=== PATIENT | female | born 1995 | race Caucasian/White ===

== ENCOUNTER 2018-01-18 20:55 | Inpatient (IN) | payer BC, OTHER ==
[~2018-01-18] VITALS: Ht 142.2 cm; Wt 74.5 kg
[2018-01-18 21:19] VITALS: BP 125/78
[2018-01-18 21:31] LABS: CREATININE,URINE RANDOM 82.7 mg/dL
[2018-01-18 21:36] LABS: MICROSCOPIC INDICATED
[2018-01-18 21:36] LABS: BASOPHILS # (AUTO) 0.02 x10^3/uL (0-0.1); BASOPHILS % (AUTO) 0 % (0-1); EOSINOPHILS # (AUTO) 0.06 x10^3/uL (0-0.4); EOSINOPHILS % (AUTO) 1 % (1-7); LYMPHOCYTES # (AUTO) 2.22 x10^3/uL (1-3.4); LYMPHOCYTES % (AUTO) 19 % (22-44); MD NO; MEAN CORPUSCULAR HEMOGLOBIN 26.6 pg (27.0-34.8); MEAN CORPUSCULAR HGB CONC 32.8 g/dL (32.4-35.8); MEAN CORPUSCULAR VOLUME 81.1 fL (80-100); MEAN PLATELET VOLUME 9.7 fL (7.4-10.4); MONOCYTES # (AUTO) 0.66 x10^3/uL (0.2-0.8); MONOCYTES % (AUTO) 6 % (2-9); NEUTROPHILS % (AUTO) 75 % (42-75); PLATELET COUNT 315 x10^3/uL (130-400); RED BLOOD COUNT 4.61 x10^6/uL (3.82-5.3); RED CELL DISTRIBUTION WIDTH 14.9 % (9.6-15.2)
[2018-01-18 21:46] LABS: ALANINE AMINOTRANSFERASE 60 U/L (12-78); ALBUMIN 2.1 g/dL (3.4-5.0); ANION GAP 7 mmol/L (5-15); BILIRUBIN, DIRECT 0.4 mg/dL (0.1-0.2); CALCIUM 8.3 mg/dL (8.5-10.1); CHLORIDE 109 mmol/L (98-107); CREATININE 0.49 mg/dL (0.55-1.02)
[2018-01-18 21:48] LABS: ALKALINE PHOSPHATASE 275 U/L (45-117); BILIRUBIN,TOTAL 0.6 mg/dL (0.2-1.0); TOTAL PROTEIN 6.6 g/dL (6.4-8.2)
[2018-01-18] MEDS ORDERED: MAALOX/HYOSCYAMINE/LIDOCAINE 45 ML BTL PO ONE (22:00)
[2018-01-19 04:53] LABS: BASOPHILS # (AUTO) 0.03 x10^3/uL (0-0.1); BASOPHILS % (AUTO) 0 % (0-1); EOSINOPHILS % (AUTO) 1 % (1-7); LYMPHOCYTES # (AUTO) 2.39 x10^3/uL (1-3.4); LYMPHOCYTES % (AUTO) 24 % (22-44); MD NO; MEAN CORPUSCULAR HEMOGLOBIN 26.5 pg (27.0-34.8); MEAN CORPUSCULAR HGB CONC 32.8 g/dL (32.4-35.8); MEAN CORPUSCULAR VOLUME 80.8 fL (80-100); MEAN PLATELET VOLUME 9.9 fL (7.4-10.4); MONOCYTES # (AUTO) 0.51 x10^3/uL (0.2-0.8); MONOCYTES % (AUTO) 5 % (2-9); NEUTROPHILS % (AUTO) 69 % (42-75); PLATELET COUNT 329 x10^3/uL (130-400); RED BLOOD COUNT 4.55 x10^6/uL (3.82-5.3); RED CELL DISTRIBUTION WIDTH 15.7 % (9.6-15.2)
[2018-01-19 05:06] LABS: ALBUMIN 2.2 g/dL (3.4-5.0); ANION GAP 7 mmol/L (5-15); CALCIUM 8.2 mg/dL (8.5-10.1); CHLORIDE 107 mmol/L (98-107)
[2018-01-19 05:10] LABS: ALANINE AMINOTRANSFERASE 85 U/L (12-78); ALKALINE PHOSPHATASE 316 U/L (45-117); BILIRUBIN,TOTAL 0.7 mg/dL (0.2-1.0); CREATININE 0.46 mg/dL (0.55-1.02); TOTAL PROTEIN 6.6 g/dL (6.4-8.2)
[2018-01-19 17:19] LABS: BASOPHILS # (AUTO) 0.03 x10^3/uL (0-0.1); BASOPHILS % (AUTO) 0 % (0-1); EOSINOPHILS # (AUTO) 0.07 x10^3/uL (0-0.4); EOSINOPHILS % (AUTO) 1 % (1-7); LYMPHOCYTES # (AUTO) 1.92 x10^3/uL (1-3.4); LYMPHOCYTES % (AUTO) 20 % (22-44); MD NO; MEAN CORPUSCULAR HEMOGLOBIN 26.6 pg (27.0-34.8); MEAN CORPUSCULAR HGB CONC 32.7 g/dL (32.4-35.8); MEAN CORPUSCULAR VOLUME 81.3 fL (80-100); MEAN PLATELET VOLUME 9.9 fL (7.4-10.4); MONOCYTES # (AUTO) 0.64 x10^3/uL (0.2-0.8); MONOCYTES % (AUTO) 7 % (2-9); NEUTROPHILS # (AUTO) 7.15 x10^3/uL (1.8-6.8); NEUTROPHILS % (AUTO) 73 % (42-75); PLATELET COUNT 329 x10^3/uL (130-400); RED BLOOD COUNT 4.64 x10^6/uL (3.82-5.3); RED CELL DISTRIBUTION WIDTH 15.4 % (9.6-15.2)
[2018-01-19 17:24] LABS: ALANINE AMINOTRANSFERASE 88 U/L (12-78); ALBUMIN 2.3 g/dL (3.4-5.0); ANION GAP 8 mmol/L (5-15); CALCIUM 8.9 mg/dL (8.5-10.1); CHLORIDE 109 mmol/L (98-107); CREATININE 0.62 mg/dL (0.55-1.02)
[2018-01-19 17:25] LABS: BILIRUBIN, DIRECT < 0.1 mg/dL (0.1-0.2)
[2018-01-19 17:27] LABS: ALKALINE PHOSPHATASE 353 U/L (45-117); BILIRUBIN,TOTAL 0.3 mg/dL (0.2-1.0); TOTAL PROTEIN 7.1 g/dL (6.4-8.2)
== END 2018-01-20 01:00 | disposition home or self-care (01) | DRG 782 ==
LOC: LDOP 20:55 → LDIP 22:07 → OBSVTOIN 01-19 13:42
PROVIDERS: ADMIT Obstetrics & Gynecology; ATTEND Obstetrics & Gynecology
DX: O13.3 Gestational [pregnancy-induced] hypertension without significant proteinuria, third trimester (principal); Z3A.35 35 weeks gestation of pregnancy
CPT/HCPCS: 36415; 80053; 81001; 81050; 82248; 82570; 84156; 84550; 85025; 86850; 86900; 87086; 96360; G0378

== ENCOUNTER 2018-10-30 18:08 | Emergency (ER) | payer BC ==
[~2018-10-30] VITALS: Ht 142.2 cm; Wt 76.5 kg
--- NOTE | 2018-10-30 18:59 | NUR ---
report given to Desiree
[2018-10-30 19:04] LABS: BASOPHILS # (AUTO) 0.04 x10^3/uL (0-0.1); BASOPHILS % (AUTO) 0 % (0-1); EOSINOPHILS # (AUTO) 0.12 x10^3/uL (0-0.4); EOSINOPHILS % (AUTO) 1 % (1-7); LYMPHOCYTES # (AUTO) 3.16 x10^3/uL (1-3.4); LYMPHOCYTES % (AUTO) 26 % (22-44); MD NO; MEAN CORPUSCULAR HEMOGLOBIN 26.8 pg (27.0-34.8); MEAN CORPUSCULAR HGB CONC 33.3 g/dL (32.4-35.8); MEAN CORPUSCULAR VOLUME 80.3 fL (80-100); MEAN PLATELET VOLUME 8.8 fL (7.4-10.4); MONOCYTES # (AUTO) 0.68 x10^3/uL (0.2-0.8); MONOCYTES % (AUTO) 6 % (2-9); NEUTROPHILS # (AUTO) 8.41 x10^3/uL (1.8-6.8); NEUTROPHILS % (AUTO) 68 % (42-75); PLATELET COUNT 308 x10^3/uL (130-400); RED BLOOD COUNT 5.04 x10^6/uL (3.82-5.3); RED CELL DISTRIBUTION WIDTH 14.7 % (9.6-15.2)
[2018-10-30 19:11] LABS: ALBUMIN 3.6 g/dL (3.4-5.0); ANION GAP 8 mmol/L (5-15); CALCIUM 8.8 mg/dL (8.5-10.1); CHLORIDE 104 mmol/L (98-107)
[2018-10-30 19:18] LABS: ALANINE AMINOTRANSFERASE 25 U/L (12-78); ALKALINE PHOSPHATASE 155 U/L (45-117); BILIRUBIN,TOTAL 0.2 mg/dL (0.2-1.0); CREATININE 0.52 mg/dL (0.55-1.02)
--- NOTE | 2018-10-30 19:53 | NUR ---
pt resting on gurney, monitors in place, call light within reach, urine sample sent. awaiting results
[2018-10-30 20:07] LABS: MICROSCOPIC INDICATED
[2018-10-30 20:18] LABS: CULTURE INDICATED? NO
--- NOTE | 2018-10-30 20:32 | NUR ---
provided pt with po fluids. pt up to rr with steady gait.
[2018-10-30 20:52] VITALS: BP 153/94
--- NOTE | 2018-10-30 20:52 | NUR ---
pt tolerating po fluid without difficulty, denies n/v. pt resting on gurney, monitors in place, call light within reach. chart up for recheck
== END 2018-10-30 21:55 | disposition home or self-care (01) ==
LOC: ED 21:33
DX: K80.70 Calculus of gallbladder and bile duct without cholecystitis without obstruction (principal); Z98.890 Other specified postprocedural states
CPT/HCPCS: 36415; 76700; 80053; 81001; 83690; 84703; 85025; 99284

== ENCOUNTER 2018-11-12 06:18 | Day surgery (SDC) | payer BC ==
[~2018-11-12] VITALS: Ht 142.2 cm; Wt 76.4 kg
[~2018-11-12 06:18] MED LIST: BUPIVACAINE/PF-EPI 0.5% 1:200K ONE
[2018-11-12] MEDS ORDERED: LACTATED RINGERS 1,000 ML IV SCH ×2 (06:36→07:00)
[2018-11-12] MEDS ORDERED: FENTANYL PF 250 MCG/5ML ONE (06:42)
[2018-11-12] MEDS ORDERED: MIDAZOLAM 1 MG/ML, 2ML ONE (06:42)
[2018-11-12 06:43] VITALS: BP 118/87
[2018-11-12] MEDS ORDERED: ROCURONIUM 10MG/ML,5ML ONE (06:45)
[2018-11-12] MEDS ORDERED: DEXAMETHASONE 4 MG/ML, 1ML ONE (06:45)
[2018-11-12] MEDS ORDERED: none per pt (06:48)
[2018-11-12] MEDS ORDERED: LIDOCAINE-MPF 2% ,5ML ONE (06:48)
[2018-11-12 06:49] LABS: HCG UR SG 1.029 (1.003-1.030)
[2018-11-12] MEDS ORDERED: SUCCINYLCHOLINE 20 MG/ML, 10ML ONE (06:49)
[2018-11-12] MEDS ORDERED: PROMETHAZINE 25 MG/ML, 1ML IV PRN (07:00)
[2018-11-12] MEDS ORDERED: HALOPERIDOL 5 MG/ML IV PRN (07:00)
[2018-11-12] MEDS ORDERED: hydrALAzine 20 MG/ML, 1ML IV PRN (07:00)
[2018-11-12] MEDS ORDERED: DIAZEPAM 5 MG/ML, 2ML IVPush PRN (07:00)
[2018-11-12] MEDS ORDERED: MORPHINE SULFATE 4 MG/ML, 1ML IVPush PRN (07:00)
[2018-11-12] MEDS ORDERED: EPHEDRINE 50 MG/ML, 1ML IVPush PRN (07:00)
[2018-11-12] MEDS ORDERED: PROMETHAZINE 12.5 MG SUPP PR PRN (07:00)
[2018-11-12] MEDS ORDERED: OXYcodone 5 MG/5 ML ORAL.SOL UDC PO PRN (07:00)
[2018-11-12] MEDS ORDERED: HYDROmorphone 2 MG/ML, 1ML IVPush PRN (07:00)
[2018-11-12] MEDS ORDERED: ONDANSETRON ODT 8 MG PO PRN (07:00)
[2018-11-12] MEDS ORDERED: FENTANYL PF 100 MCG/2ML IV PRN (07:00)
[2018-11-12] MEDS ORDERED: LABETALOL 5MG/ML, 20ML IV PRN (07:00)
[2018-11-12] MEDS ORDERED: ONDANSETRON 2MG/ML, 2ML IV PRN (07:00)
[2018-11-12] MEDS ORDERED: MIDAZOLAM 1 MG/ML, 2ML IV PRN (07:00)
[2018-11-12] MEDS ORDERED: ALBUTEROL SULFATE 2.5 MG/3 ML NPPB PRN (07:00)
[2018-11-12] MEDS ORDERED: CEFAZOLIN 1,000 MG ONE (07:05)
[2018-11-12] MEDS ORDERED: PROPOFOL 10 MG/ML, 20ML ONE (07:05)
[2018-11-12] MEDS ORDERED: KETOROLAC 30 MG/1 ML ONE (07:27)
[2018-11-12] MEDS ORDERED: NEOSTIGMINE 1 MG/ML, 10ML ONE (07:29)
[2018-11-12] MEDS ORDERED: GLYCOPYRROLATE 0.4 MG/2 ML, 2ML ONE (07:29)
[2018-11-12] MEDS ORDERED: ONDANSETRON 2MG/ML, 2ML ONE ×2 (07:29)
[2018-11-12] MEDS ORDERED: MEPERIDINE/PF 25MG/ML,1ML ONE (08:16)
[2018-11-12] MEDS ORDERED: OXYcodone 5 MG/5 ML ORAL.SOL UDC ONE (08:16)
[2018-11-12] MEDS ORDERED: ACETAMINOPHEN 650 MG/20.3 ML UDC ONE (08:16)
[2018-11-12] MEDS: MEPERIDINE/PF 25MG/0.5ML IVPush PRN ×2 (08:25→08:40)
[2018-11-12] MEDS ORDERED: ACETAMINOPHEN 650 MG/20.3 ML UDC PO PRN (08:30)
== END 2018-11-12 10:10 | disposition home or self-care (01) ==
LOC: OUT 06:18
PROVIDERS: ATTEND Surgery
DX: K80.12 Calculus of gallbladder with acute and chronic cholecystitis without obstruction (principal)
CPT/HCPCS: 47562; 81025; 88304; C1760; J0330; J0690; J1100; J1885; J2175; J2250; J2405; J2704; J2710; J3010; J3490; J7120